=== PATIENT | male | born 1955 | race Caucasian/White ===

== ENCOUNTER → 2019-11-30 06:52 | Outpatient (CLI) | payer OTHER, MEDICARE, SELFPAY ==
[2019-11-30 08:12] LABS: Alanine Aminotransferase 29 IU/L (<50); Albumin 4.1 g/dL (3.5-5.0); Albumin Globulin Ratio 1.4 (1.0-2.8); Alkaline Phosphatase 40 U/L (38-126); Aspartate Aminotransferase 30 IU/L (17-59); BUN Creatinine Ratio 22.2 (6-22); Bilirubin Total 0.8 mg/dL (0.2-1.3); Blood Urea Nitrogen 20 mg/dL (9-20); Calcium 9.2 mg/dL (8.4-10.2); Carbon Dioxide 31 mmol/L (22-32); Chloride 104 mmol/L (98-107); Cholesterol 150 mg/dL (140-199); Estimated Glomerular Filt Rate > 60.0 mL/min (>60); Glucose 87 mg/dL (80-110); HDL Cholesterol 46 mg/dL (40-60); HEMOLYSIS < 15 (0-50); LDL Cholesterol Calculated 93 mg/dL (<100); Sodium 142 mmol/L (137-145); Total Protein 7.1 g/dL (6.3-8.2); Triglycerides 55 mg/dL (35-150)
[2019-11-30 08:18] LABS: Hemoglobin A1C% w Est Avg Glu 5.1 % (4.0-6.0)
[2019-11-30 08:40] LABS: Prostate Specific Antigen Scrn 0.763 ng/mL (0.1-4.0)
[2019-11-30 09:00] LABS: Hep C Virus Ab w/Reflex Quant NEGATIVE s/c (NEGATIVE)
== END ==
PROVIDERS: PCP Physician Assistant; Visit Provider Physician Assistant
DX: Z12.5 Encounter for screening for malignant neoplasm of prostate (principal); Z00.00 Encounter for general adult medical examination without abnormal findings; Z13.1 Encounter for screening for diabetes mellitus; Z13.6 Encounter for screening for cardiovascular disorders; Z82.49 Family history of ischemic heart disease and other diseases of the circulatory system; Z11.59 Encounter for screening for other viral diseases; Z13.220 Encounter for screening for lipoid disorders
CPT/HCPCS: 36415; 80053; 80061; 83036; 86803; G0103

== ENCOUNTER → 2020-06-06 08:44 | Outpatient (CLI) | payer MEDICARE, OTHER, SELFPAY ==
[2020-06-07 14:39] LABS: Fecal Immunochemical Test Negative (Negative)
== END ==
PROVIDERS: PCP Nurse Practitioner; Referring Provider Nurse Practitioner; Visit Provider Nurse Practitioner
DX: Z12.11 Encounter for screening for malignant neoplasm of colon (principal)
CPT/HCPCS: 82274

== ENCOUNTER → 2020-12-05 07:11 | Outpatient (CLI) | payer MEDICARE, OTHER, SELFPAY ==
[2020-12-05 09:20] LABS: Free T3, Triiodothyronine Free 4.42 pg/mL (2.77-5.27); Free T4, Direct Thyroxine 1.02 ng/dL (0.78-2.19)
[2020-12-05 09:26] LABS: Prostate Specific Antigen 0.925 ng/mL (0.10-4.00)
[2020-12-05 09:34] LABS: Thyroid Stimulating Hormone 2.61 uIU/mL (0.47-4.68)
== END ==
PROVIDERS: PCP Nurse Practitioner; Referring Provider Nurse Practitioner; Visit Provider Nurse Practitioner
DX: Z12.5 Encounter for screening for malignant neoplasm of prostate (principal); R63.4 Abnormal weight loss
CPT/HCPCS: 36415; 84153; 84439; 84443; 84481; G0103

== ENCOUNTER → 2021-02-12 09:29 | Outpatient (CLI) | payer MEDICARE, OTHER, SELFPAY ==
[2021-02-12 11:13] LABS: COVID19 -Nasal RAPID Negative (Negative)
== END ==
PROVIDERS: PCP Nurse Practitioner; Visit Provider Specialist
DX: Z20.822 Contact with and (suspected) exposure to COVID-19 (principal)
CPT/HCPCS: 87635; C9803

== ENCOUNTER 2021-02-13 11:55 | Day surgery (SDC) | payer MEDICARE, OTHER, SELFPAY ==
--- NOTE | 2021-02-13 | PATH_ITS ---
[facility] Accession Number: [id number] . 01 Material submitted: . cecum - CECUM POLYP . 02 Diagnosis: Cecum, Polyp, Biopsy: Benign lymphoid aggregate. MRV 02/17/2021 1442 Local . 02 Electronically signed: . Alaina Quick MD, Pathologist NPI- [id number] . 01 Gross description: . CECUM POLYP: Received in formalin is 1 fragment(s) of vicente, soft tissue measuring 0.3 x 0.3 x 0.2 cm submitted entirely in 1 cassette(s) /QBJ 02/14/2021 0649 Local . 02 Pathologist provided ICD-10: K63.5 . 02 CPT . 254691 Performed at: 01 [facility] [address] [id number] MD Miguel Khan MD Phone: [phone] Performed at: 02 [facility] [place] [address] [place], [place] [id number] MD Alaina Quick MD Phone: [phone]
[2021-02-13 12:09] VITALS: BP 133/78; PULSE 73; RESP 16; TEMP 36.4; O2SAT 99; BMI 18.2
[2021-02-13] MEDS: LACTATED RINGERS 1,000 ML 200 ML IV (12:35)
--- NOTE | 2021-02-13 13:18 | PM.HP.1 ---
History of Present Illness History of Present Illness Date Patient Seen: 02/13/21 Time Patient Seen: 13:18 Chief complaint: SDC Narrative: The patient is a gentleman who last had a colonoscopy over 10 years ago. He is here for screening exam. No family history of colon cancer. Patient History Medical History Colon cancer screening Counseling on health care directive Encounter for routine adult health examination without abnormal findings Family history of cardiac disorder (10/06/17) Family history of rheumatoid arthritis (10/06/17) No pertinent past medical history POLST (Physician Orders for Life-Sustaining Treatment) Prostate cancer screening Weight loss Surgical History History of tonsillectomy Family & Social History Family History Father History of rheumatoid arthritis History of obesity History of heart disease Sister Age: 75 History of malignant spinal cord neoplasm History of non-Hodgkin's lymphoma Social History: household members spouse Tobacco & Substance use: Tobacco type cigarettes Smoking Status Former smoker alcohol intake current alcohol intake frequency a few times a week Substance Use Type does not use Meds Home Medications and Allergies Home Medications Medication Instructions Recorded Confirmed Type [VITAMIN D3] 1000IU 1,000 el unit PO QDAY #0 04/30/20 02/13/21 History ovd-tnp-todv 1 tab PO .QD 12/10/20 02/13/21 History xabycbtarors-craywyiu-rhuuns tablet 1 tab PO DAILY 12/10/20 02/13/21 History Allergies Allergy/AdvReac Type Severity Reaction Status Date / Time No Known Drug Allergies Allergy Verified 02/13/21 12:41 Review of Systems Review of Systems ROS: Yes All systems reviewed with the patient and are negative except as otherwise documented Exam Vital Signs (past 8 hours): - 02/13/21 12:09 Temperature 97.6 F Pulse Rate 73 Respiratory Rate 16 Blood Pressure 133/78 Pulse Oximetry 99 Oxygen Delivery Method Room Air Narrative Exam Narrative: Pleasant cooperative patient no apparent distress. Lungs are clear to auscultation. No rales or rhonchi. Heart regular rate and rhythm no murmur gallop. Abdomen is soft nontender without mass. No obvious hernias. Patient is alert and oriented x3. Assessment & Plan Assessment & Plan narrative: The patient for a screening colonoscopy. I have discussed the procedure with them. Risks of bleeding, perforation which would necessitate major operation, failure to find remove all lesions, the potential tattoo were all discussed. All questions were answered. They wished to proceed.
--- NOTE | 2021-02-13 13:19 | PM.PREOP ---
Pre-operative Note COVID-19 COVID-19 status: Negative Interval Note History & Physical reviewed/Exam performed by Physician: Yes Changes to H&P: No ASA Class (for procedural sedation): I
[2021-02-13] MEDS: fentaNYL 250 MCG/5 ML INJ IV (13:43)
[2021-02-13] MEDS: MIDAZOLAM 5 MG/5 ML VIAL IV (13:43)
[2021-02-13 14:03] VITALS: BP 114/74; PULSE 58; RESP 14; TEMP 37.4; O2SAT 99
--- NOTE | 2021-02-13 14:05 | PM.OP.ENDO ---
Operative Date/Time/Diagnoses Date of procedure: 02/13/21 Time of procedure: 14:05 Pre-op diagnosis: Screening exam for colon cancer. Last exam about 10 years ago. Post-op diagnosis: same (Pancolonic diverticulosis. Possible tiny lesion in the cecum..) Procedure & Clinicians Study performed: Colonoscopy with cold biopsy Same procedure as scheduled: Yes Indications: Screening Surgeon: Frank Calderon Procedure Notes SCOAP/Timeout: Performed Procedure in detail: The patient was placed in the left lateral decubitus position and underwent IV sedation directed by the surgeon consisting of fentanyl and Versed. Digital exam was unremarkable.. The scope was inserted and advanced through the rectum into the sigmoid, descending, transverse, and ascending colon. Patient was noted to have extensive diverticulosis of the colon. Stiffener was applied and pressure applied in order to reach the cecum.. The cecum was reached identified by the ileocecal valve and the appendiceal opening. There was a tiny possible polyp near the cecum which I biopsied. The scope was gradually brought out. No other Polyps were found. The scope ultimately was retroflexed in the rectum. The appearance was was remarkable for internal hemorrhoids without ulceration.. The scope was removed and the patient tolerated the procedure well. The prep was very good. Scope withdrawal time: 11 minutes Sedation minutes: 27 Findings: diverticulosis (Pancolonic) and polyp (Possible cecal polyp) Specimen(s): other (Possible polyp) Complications: none Post-procedure Recommendations: Start medication(s) (Consider taking Metamucil) and Other recommendation (If the lesion biopsied is adenomatous he should have a repeat colonoscopy in 5 years. If not a to be 10 years.) Follow up: as needed Disposition: PACU
[2021-02-13 14:06] VITALS: BP 107/65; PULSE 61; RESP 14; O2SAT 99
[2021-02-13 14:11] VITALS: BP 104/67; PULSE 70; RESP 16; O2SAT 100
[2021-02-13 14:16] VITALS: BP 110/71; PULSE 70; RESP 14; TEMP 37.1; O2SAT 100
[2021-02-13 14:20] VITALS: BP 112/68; PULSE 57; RESP 14; TEMP 36.8; O2SAT 100
== END 2021-02-13 14:39 | disposition home or self-care (01) ==
PROVIDERS: PCP Nurse Practitioner; Referring Provider Specialist; Visit Provider Specialist
PROC: 0DJD8ZZ Inspection of Lower Intestinal Tract, Via Natural or Artificial Opening Endoscopic (ICD-10-PCS; CPT 45378; principal; 2021-02-13 13:00)
DX: Z12.11 Encounter for screening for malignant neoplasm of colon (principal); K57.30 Diverticulosis of large intestine without perforation or abscess without bleeding
CPT/HCPCS: 45380; 99152; J2250; J3010

== ENCOUNTER → 2021-03-24 15:52 | Outpatient (CLI) | payer MEDICARE, OTHER, SELFPAY | PROVIDERS: PCP Nurse Practitioner; Visit Provider Student in an Organized Health Care Education/Training Program | DX: L03.032 Cellulitis of left toe (principal) | CPT/HCPCS: 87070; 87075; 87077; 87147; 87186; 87205 ==

== ENCOUNTER → 2022-04-30 06:52 | Outpatient (CLI) | payer MEDICARE, OTHER, SELFPAY ==
[2022-05-01 05:14] LABS: Prostate Specific Antigen Scrn 0.852 ng/mL (0.1-4.0)
[2022-05-01 13:39] LABS: Fecal Immunochemical Test Negative (Negative)
== END ==
PROVIDERS: PCP Nurse Practitioner; Referring Provider Nurse Practitioner; Visit Provider Nurse Practitioner
DX: Z12.5 Encounter for screening for malignant neoplasm of prostate (principal); Z12.11 Encounter for screening for malignant neoplasm of colon
CPT/HCPCS: 36415; 82274; G0103

== ENCOUNTER → 2024-11-17 07:02 | Outpatient (CLI) | payer MEDICARE, OTHER, SELFPAY ==
[2024-11-17 08:57] LABS: Alanine Aminotransferase 30 IU/L (<50); Albumin 4.4 g/dL (3.5-5.0); Albumin Globulin Ratio 1.6 (1.0-2.8); Alkaline Phosphatase 52 U/L (38-126); Aspartate Aminotransferase 34 IU/L (17-59); BUN Creatinine Ratio 23.7 (6-22); Bilirubin Total 0.8 mg/dL (0.2-1.3); Blood Urea Nitrogen 22 mg/dL (9-20); Calcium 9.6 mg/dL (8.4-10.2); Carbon Dioxide 31 mmol/L (22-32); Chloride 103 mmol/L (98-107); Cholesterol 167 mg/dL (140-199); Estimated Glomerular Filt Rate > 60 mL/min (>60); Globulin 2.7 g/dL (1.7-4.1); Glucose 97 mg/dL (80-110); HDL Cholesterol 59 mg/dL (40-60); HEMOLYSIS < 15 (0-50); LDL Cholesterol Calculated 94 mg/dL (<100); Potassium 4.6 mmol/L (3.4-5.1); Sodium 140 mmol/L (137-145); Total Protein 7.1 g/dL (6.3-8.2); Triglycerides 68 mg/dL (35-150)
[2024-11-17 09:20] LABS: Prostate Specific Antigen Scrn 1.23 ng/mL (0.1-4.0)
== END ==
LOC: LAB 07:05
PROVIDERS: Family Provider Nurse Practitioner; PCP Registered Nurse Diabetes Educator; Referring Provider Nurse Practitioner; Visit Provider Nurse Practitioner
DX: Z13.6 Encounter for screening for cardiovascular disorders (principal); Z12.5 Encounter for screening for malignant neoplasm of prostate; Z13.1 Encounter for screening for diabetes mellitus
CPT/HCPCS: 36415; 80053; 80061; G0103

== ENCOUNTER → 2024-12-27 11:00 | Outpatient (RCR) | payer MEDICARE, OTHER, SELFPAY ==
--- NOTE | 2023-08-30 10:53 | PT.OIE ---
Current Diagnoses Low back pain, unspecified (08/30/23) Abnormal posture (08/30/23) Past Medical History (Last Reviewed 06/14/23 @ 15:37 by JOON Jerez) Colon cancer screening Counseling on health care directive Encounter for routine adult health examination without abnormal findings Family history of cardiac disorder (10/06/17) Family history of rheumatoid arthritis (10/06/17) No pertinent past medical history POLST (Physician Orders for Life-Sustaining Treatment) Prostate cancer screening Weight loss Past Surgical History (Last Reviewed 06/14/23 @ 15:37 by JOON Jerez) History of tonsillectomy Visit Care Team Role Provider Type JOON Jerez Attending Provider Advanced Project Associate Family Provider Primary Care Provider Referring Provider Specialty: Family Practice Address: [address] [place] [address], [facility] Email: [email or web address] Physical Therapy Initial Evaluation PT-OP-A Visit Information Start: 08/30/23 10:33 Freq: Status: Active Protocol: Document 08/30/23 09:30 DCW (Rec: 08/30/23 10:42 [facility] [id number]) Out-Patient Physical Therapy Visit Information Visit Information Visit Type Initial Evaluation Visit Start Time 09:30 Visit Stop Time 10:15 Total Visit Minutes 45 Visit Number 1 Number of FIBREGLASS LAMINATOR Visits 0 Evaluation Information Evaluation Date 08/30/23 PT-OP-B Current Condition Start: 08/30/23 10:33 Freq: Status: Active Protocol: Document 08/30/23 09:30 DCW (Rec: 08/30/23 10:42 [facility] [id number]) Current Condition History of Current Condition Onset Date Multi-year history Current Complaints Occasional low back pain, worsening posture History of Current Condition Pt is a 68 year old male presenting to skilled therapy with complaints of a long- standing history of occasional low back pain. Pt notes it typically occurs 2-3x/year, lasts ~4 days, and usual resolves with rest. No specific cause, typically can occur with rotation or lifting , but can also happen when just standing around. Additionally, pt notes his has been pointing out worsening posture. Right now, no specific pain, not at all limited in activity, typically goes for a walk and/or bike ride daily. PT-OP-C Subjective Start: 08/30/23 10:33 Freq: Status: Active Protocol: Document 08/30/23 09:30 DCW (Rec: 08/30/23 10:42 DCW [id number]) OP-PT Subjective Patient Comments Patient Comments I'm sorry I don't have some big chronic thing to work on, it's just kind of occasionally annoying. Patient Questionnaires Oswestry Low Back Index Oswestry Score 0% Oswestry Impairment 0% Impaired (Score 0) PT-OP-F Manual Assessment Start: 08/30/23 10:33 Freq: Status: Active Protocol: Document 08/30/23 09:30 DCW (Rec: 08/30/23 10:42 DCW [id number]) Manual Assessments Soft Tissue Assessment Soft Tissue Mobility Assessment Mild increased tone in bilateral piriformis and hamstrings, no tenderness. PT-OP-J Posture/Palpation/Skin Start: 08/30/23 10:33 Freq: Status: Active Protocol: Document 08/30/23 09:30 DCW (Rec: 08/30/23 10:42 DCW [id number]) Posture Evaluation Position Standing Evaluation View Lateral Head/C-Spine Posture Forward Head T-Spine Posture Increased Kyphosis Shoulder Posture (L) Rounded,(R) Rounded,(L) Forward,(R) Forward PT-OP-K Range of Motion Start: 08/30/23 10:33 Freq: Status: Active Protocol: Document 08/30/23 09:30 DCW (Rec: 08/30/23 10:42 DCW [id number]) Lumbar Spine Range of Motion Lumbar Spine Active Degrees Testing Position Standing Flexion 55 Extension 15 Lateral Flexion Left 59 Lateral Flexion Right 57 Comments Lateral flexion measured in cm from fingertips to floor PT-OP-L Special Tests Start: 08/30/23 10:33 Freq: Status: Active Protocol: Document 08/30/23 09:30 DCW (Rec: 08/30/23 10:42 DCW [id number]) Special Tests Lumbar Spine Special Tests Vertical Spine Loading Test Results Negative Straight Leg Raise Test Results Bilateral hamstring tightness Standing Flexion Test Results Negative Slump Test Results Negative Compression Test Results Negative PT-OP-Q Treatments Start: 08/30/23 10:33 Freq: Status: Active Protocol: Document 08/30/23 09:30 DCW (Rec: 08/30/23 10:53 [facility] [id number]) Therapeutic Exercises Supine Exercises Chin tuck Supine Exercise Name Chin tuck/Head lift Sitting Exercises Piriformis Sitting Exercise Name Seated figure-4 piriformis stretch Side bilateral Standing Exercises Pallof Press Standing Exercise Name Pallof Press Rows Standing Exercise Name Rows Side bilateral Resistance Lv 3 Pec stretch Standing Exercise Name Corner stretch Side bilateral PT-OP-T Assessment and Plan Start: 08/30/23 10:33 Freq: Status: Active Protocol: Document 08/30/23 09:30 DCW (Rec: 08/30/23 10:53 [facility] [id number]) Physical Therapy Assessment Rehab Potential Rehabilitation Potential Excellent Evaluation Complexity Number of Personal Factors/Comorbidities 0 Number of Body Systems Impaired 1-2 Clinical Presentation at Evaluation Stable Impairments Impairments Functional Activities, Functional Mobility,Posture, ROM Goals Two Impairment Pt presents with poor posture 80% of the time Cloth Baler Goal (LTG) Pt to present with WNL standing posture without verbal cueing 50% of the time LTG Duration 09/30/23 One Impairment Pt does not have an appropriate home exercise program Short Term Goal (STG) Pt to be independent and compliant with an appropriate HEP STG Duration 09/13/23 Assessment Summary Assessment 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 Pt should benefit from skilled therapy focusing on an appropriate HEP to improve cervical strengthening and stretching to improve rounded shoulders, as well as core strengthening to help prevent further low back flare-ups. Pt currently doing fairly well, difficult to determine what exact low back issue he is having, completely asymptomatic at this time. Will likely do well with implementation of comprehensive HEP and focus on improved posture. Physical Therapy Plan Frequency and Duration Frequency of Treatment 2x/Week Plan of Care Start Date 08/30/23 Plan of Care End Date 09/30/23 Therapeutic Interventions Therapeutic Interventions Home Exercise Program,Joint Mobilizations,Manual Therapy, Neuromuscular Re-education, Patient/Caregiver Education, Self-Care/Home Management,Soft Tissue Mobilization, Therapeutic Activities, Therapeutic Exercises Next Visit Focus/Plan Next Note Type Treatment Note Next Visit Plan Posture training, core strengthening, stretching
--- NOTE | 2023-08-30 10:54 | PT.OPPOC ---
Physical, Occupational & Speech Therapy At [facility] Current Diagnoses Low back pain, unspecified (08/30/23) Abnormal posture (08/30/23) Visit Care Team Role Provider Type JOON Jerez Attending Provider Advanced Beam Department Supervisor Family Provider Primary Care Provider Referring Provider Specialty: Family Practice Address: [address] [place] [address], [facility] Email: [email or web address] Plan Of Care PT-OP-T Assessment and Plan Start: 08/30/23 10:33 Freq: Status: Active Protocol: Document 08/30/23 09:30 DCW (Rec: 08/30/23 10:53 DCW [id number]) Physical Therapy Assessment Rehab Potential Rehabilitation Potential Excellent Evaluation Complexity Number of Personal Factors/Comorbidities 0 Number of Body Systems Impaired 1-2 Clinical Presentation at Evaluation Stable Impairments Impairments Functional Activities, Functional Mobility,Posture, ROM Goals Two Impairment Pt presents with poor posture 80% of the time Utilization Reviewer Goal (LTG) Pt to present with WNL standing posture without verbal cueing 50% of the time LTG Duration 09/30/23 One Impairment Pt does not have an appropriate home exercise program Short Term Goal (STG) Pt to be independent and compliant with an appropriate HEP STG Duration 09/13/23 Assessment Summary Assessment 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 Pt should benefit from skilled therapy focusing on an appropriate HEP to improve cervical strengthening and stretching to improve rounded shoulders, as well as core strengthening to help prevent further low back flare-ups. Pt currently doing fairly well, difficult to determine what exact low back issue he is having, completely asymptomatic at this time. Will likely do well with implementation of comprehensive HEP and focus on improved posture. Physical Therapy Plan Frequency and Duration Frequency of Treatment 2x/Week Plan of Care Start Date 08/30/23 Plan of Care End Date 09/30/23 Therapeutic Interventions Therapeutic Interventions Home Exercise Program,Joint Mobilizations,Manual Therapy, Neuromuscular Re-education, Patient/Caregiver Education, Self-Care/Home Management,Soft Tissue Mobilization, Therapeutic Activities, Therapeutic Exercises Next Visit Focus/Plan Next Note Type Treatment Note Next Visit Plan Posture training, core strengthening, stretching Plan of Care Dates Plan of Care Start Date 08/30/23 Plan of Care End Date 09/30/23 Electronically Signed by: Kemal Hyde, PT 08/30/23 8828 If you are in agreement with this Plan of Care, please return a signed and dated copy. I have reviewed this Plan of Care and certify that the skilled therapy services above are required to meet the patient?s needs. Physician Signature Date Printed Name and Credentials Clinical Instructor Signature Printed Name and Credentials
--- NOTE | 2023-09-01 10:14 | PT.OTN ---
Current Diagnoses Low back pain, unspecified (09/01/23) Abnormal posture (09/01/23) Physical Therapy Treatment Note PT-OP-A Visit Information Start: 08/30/23 10:33 Freq: Status: Active Protocol: Document 09/01/23 09:30 DCW (Rec: 09/01/23 10:14 DCW [id number]) Out-Patient Physical Therapy Visit Information Visit Information Visit Type Treatment Note Visit Start Time 09:30 Visit Stop Time 10:15 Total Visit Minutes 45 Visit Number 2 Number of MANAGER STRATEGIC PARTNERSHIPS Visits 0 Evaluation Information Evaluation Date 08/30/23 PT-OP-B Current Condition Start: 08/30/23 10:33 Freq: Status: Active Protocol: Document 08/30/23 09:30 DCW (Rec: 08/30/23 10:42 DCW [id number]) Current Condition History of Current Condition Onset Date Multi-year history Current Complaints Occasional low back pain, worsening posture History of Current Condition Pt is a 68 year old male presenting to skilled therapy with complaints of a long- standing history of occasional low back pain. Pt notes it typically occurs 2-3x/year, lasts ~4 days, and usual resolves with rest. No specific cause, typically can occur with rotation or lifting , but can also happen when just standing around. Additionally, pt notes his has been pointing out worsening posture. Right now, no specific pain, not at all limited in activity, typically goes for a walk and/or bike ride daily. PT-OP-C Subjective Start: 08/30/23 10:33 Freq: Status: Active Protocol: Document 09/01/23 09:30 DCW (Rec: 09/01/23 10:14 DCW [id number]) OP-PT Subjective Patient Comments Patient Comments Pt notes some very mild right- sided neck pain, thinks it may have even been present prior to his evwednesday, but that's his only complaint. PT-OP-F Manual Assessment Start: 08/30/23 10:33 Freq: Status: Active Protocol: Document 08/30/23 09:30 DCW (Rec: 08/30/23 10:42 DCW [id number]) Manual Assessments Soft Tissue Assessment Soft Tissue Mobility Assessment Mild increased tone in bilateral piriformis and hamstrings, no tenderness. PT-OP-J Posture/Palpation/Skin Start: 08/30/23 10:33 Freq: Status: Active Protocol: Document 08/30/23 09:30 DCW (Rec: 08/30/23 10:42 DCW [id number]) Posture Evaluation Position Standing Evaluation View Lateral Head/C-Spine Posture Forward Head T-Spine Posture Increased Kyphosis Shoulder Posture (L) Rounded,(R) Rounded,(L) Forward,(R) Forward PT-OP-K Range of Motion Start: 08/30/23 10:33 Freq: Status: Active Protocol: Document 08/30/23 09:30 DCW (Rec: 08/30/23 10:42 DCW [id number]) Lumbar Spine Range of Motion Lumbar Spine Active Degrees Testing Position Standing Flexion 55 Extension 15 Lateral Flexion Left 59 Lateral Flexion Right 57 Comments Lateral flexion measured in cm from fingertips to floor PT-OP-L Special Tests Start: 08/30/23 10:33 Freq: Status: Active Protocol: Document 08/30/23 09:30 DCW (Rec: 08/30/23 10:42 DCW [id number]) Special Tests Lumbar Spine Special Tests Vertical Spine Loading Test Results Negative Straight Leg Raise Test Results Bilateral hamstring tightness Standing Flexion Test Results Negative Slump Test Results Negative Compression Test Results Negative PT-OP-Q Treatments Start: 08/30/23 10:33 Freq: Status: Active Protocol: Document 09/01/23 09:30 DCW (Rec: 09/01/23 10:14 DCW [id number]) Therapeutic Exercises Supine Exercises Air Bicycle Supine Exercise Name PPT /c Air bicycle SLR Supine Exercise Name PPT /c SLR Side bilateral Reps/Minutes 5 hold, 10x each Marching Supine Exercise Name PPT /c Marching Reps/Minutes 10 PPT Supine Exercise Name PPT /c TrA Reps/Minutes 5 hold Sitting Exercises Upper Trap Sitting Exercise Name Upper Trap stretch Standing Exercises Pallof Press Standing Exercise Name Pallof Press Resistance Lv 3 Rows Standing Exercise Name Rows Side bilateral Resistance Lv 3 PT-OP-T Assessment and Plan Start: 08/30/23 10:33 Freq: Status: Active Protocol: Document 09/01/23 09:30 DCW (Rec: 09/01/23 10:14 DCW [id number]) Physical Therapy Assessment Impairments Impairments Functional Activities, Functional Mobility,Posture, ROM Goals Two Impairment Pt presents with poor posture 80% of the time Skilled Nursing Goal (LTG) Pt to present with WNL standing posture without verbal cueing 50% of the time LTG Duration 09/30/23 One Impairment Pt does not have an appropriate home exercise program Short Term Goal (STG) Pt to be independent and compliant with an appropriate HEP STG Duration 09/13/23 Assessment Summary Assessment Pt provided with a new HEP hand-out, happy with current exercises, feels education has been beneficial so far. Continue to work on posture and core strengthening. Physical Therapy Plan Frequency and Duration Frequency of Treatment 2x/Week Plan of Care Start Date 08/30/23 Plan of Care End Date 09/30/23 Therapeutic Interventions Therapeutic Interventions Home Exercise Program,Joint Mobilizations,Manual Therapy, Neuromuscular Re-education, Patient/Caregiver Education, Self-Care/Home Management,Soft Tissue Mobilization, Therapeutic Activities, Therapeutic Exercises Next Visit Focus/Plan Next Note Type Treatment Note Next Visit Plan Posture training, core strengthening, stretching
--- NOTE | 2023-09-06 12:48 | PT.OTN ---
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 Pt notes it typically occurs 2-3x/year, lasts ~4 days, and usual resolves with rest. No specific cause, typically can occur with rotation or lifting , but can also happen when just standing around. Additionally, pt notes his has been pointing out worsening posture. Right now, no specific pain, not at all limited in activity, typically goes for a walk and/or bike ride daily. PT-OP-C Subjective Start: 08/30/23 10:33 Freq: Status: Active Protocol: Document 09/06/23 12:00 DCW (Rec: 09/06/23 12:48 DCW [id number]) OP-PT Subjective Patient Comments Patient Comments Pt comes in today reporting a flare-up in low back pain, started yesterday morning, unsure what the cause was. PT-OP-F Manual Assessment Start: 08/30/23 10:33 Freq: Status: Active Protocol: Document 08/30/23 09:30 DCW (Rec: 08/30/23 10:42 DCW [id number]) Manual Assessments Soft Tissue Assessment Soft Tissue Mobility Assessment Mild increased tone in bilateral piriformis and hamstrings, no tenderness. PT-OP-J Posture/Palpation/Skin Start: 08/30/23 10:33 Freq: Status: Active Protocol: Document 08/30/23 09:30 DCW (Rec: 08/30/23 10:42 DCW [id number]) Posture Evaluation Position Standing Evaluation View Lateral Head/C-Spine Posture Forward Head T-Spine Posture Increased Kyphosis Shoulder Posture (L) Rounded,(R) Rounded,(L) Forward,(R) Forward PT-OP-K Range of Motion Start: 08/30/23 10:33 Freq: Status: Active Protocol: Document 08/30/23 09:30 DCW (Rec: 08/30/23 10:42 DCW [id number]) Lumbar Spine Range of Motion Lumbar Spine Active Degrees Testing Position Standing Flexion 55 Extension 15 Lateral Flexion Left 59 Lateral Flexion Right 57 Comments Lateral flexion measured in cm from fingertips to floor PT-OP-L Special Tests Start: 08/30/23 10:33 Freq: Status: Active Protocol: Document 08/30/23 09:30 DCW (Rec: 08/30/23 10:42 DCW [id number]) Special Tests Lumbar Spine Special Tests Vertical Spine Loading Test Results Negative Straight Leg Raise Test Results Bilateral hamstring tightness Standing Flexion Test Results Negative Slump Test Results Negative Compression Test Results Negative PT-OP-Q Treatments Start: 08/30/23 10:33 Freq: Status: Active Protocol: Document 09/06/23 12:00 DCW (Rec: 09/06/23 12:48 DCW [id number]) Gym Equipment Therapeutic Ball Pelvic tilts/circles Exercise Details Pelvic tilts/circles Ball Size/Color Red - 75 cm Body Position Sitting Therapeutic Exercises Supine Exercises Self STM Supine Exercise Name Lumbar paraspinals Side left Comments /c Tennis ball Sidelying Exercises Open Book Sidelying Exercise Name Open Book Standing Exercises Hip Hiking Standing Exercise Name Hip Hiking Side bilateral Equipment Used 4 step PT-OP-T Assessment and Plan Start: 08/30/23 10:33 Freq: Status: Active Protocol: Document 09/06/23 12:00 DCW (Rec: 09/06/23 12:48 DCW [id number]) Physical Therapy Assessment Impairments Impairments Functional Activities, Functional Mobility,Posture, ROM Goals Two Impairment Pt presents with poor posture 80% of the time Mcfp Goal (LTG) Pt to present with WNL standing posture without verbal cueing 50% of the time LTG Duration 09/30/23 One Impairment Pt does not have an appropriate home exercise program Short Term Goal (STG) Pt to be independent and compliant with an appropriate HEP STG Duration 09/13/23 Assessment Summary Assessment Increased tone and tenderness today along left QL and paraspinals, focused on self- STM and stretching/ strengthening. Good overall response. Was planning to discharge following today's appointment, as pt felt good with independent HEP, however since pt currently has slight flare-up, decided to keep pt's chart open for ~1 month just in case he has any set-backs. Will plan to discharge in one month if pt has not scheduled any follow-ups by that time. Physical Therapy Plan Frequency and Duration Frequency of Treatment 2x/Week Plan of Care Start Date 08/30/23 Plan of Care End Date 09/30/23 Therapeutic Interventions Therapeutic Interventions Home Exercise Program,Joint Mobilizations,Manual Therapy, Neuromuscular Re-education, Patient/Caregiver Education, Self-Care/Home Management,Soft Tissue Mobilization, Therapeutic Activities, Therapeutic Exercises Next Visit Focus/Plan Next Note Type Treatment Note Next Visit Plan Posture training, core strengthening, stretching
--- NOTE | 2024-12-26 16:31 | PT.OPDS ---
Current Diagnoses Low back pain, unspecified (09/06/23) Abnormal posture (09/06/23) Visit Care Team Role Provider Type JOON Jerez Attending Provider [employer] Speech Language Pathologist Family Provider Primary Care Provider Referring Provider Specialty: Family Practice Address: Email: [email or web address] Visit Number Visit Number 3 Discharge Summary PT-OP-B Current Condition Start: 08/30/23 10:33 Freq: Status: Active Protocol: Document 08/30/23 09:30 DCW (Rec: 08/30/23 10:42 DCW [id number]) Current Condition History of Current Condition Onset Date Multi-year history Current Complaints Occasional low back pain, worsening posture History of Current Condition Pt is a 68 year old male presenting to skilled therapy with complaints of a long- standing history of occasional low back pain. Pt notes it typically occurs 2-3x/year, lasts ~4 days, and usual resolves with rest. No specific cause, typically can occur with rotation or lifting , but can also happen when just standing around. Additionally, pt notes his has been pointing out worsening posture. Right now, no specific pain, not at all limited in activity, typically goes for a walk and/or bike ride daily. PT-OP-C Subjective Start: 08/30/23 10:33 Freq: Status: Active Protocol: Document 09/06/23 12:00 DCW (Rec: 09/06/23 12:48 DCW [id number]) OP-PT Subjective Patient Comments Patient Comments Pt comes in today reporting a flare-up in low back pain, started yesterday morning, unsure what the cause was. PT-OP-F Manual Assessment Start: 08/30/23 10:33 Freq: Status: Active Protocol: Document 08/30/23 09:30 DCW (Rec: 08/30/23 10:42 DCW [id number]) Manual Assessments Soft Tissue Assessment Soft Tissue Mobility Assessment Mild increased tone in bilateral piriformis and hamstrings, no tenderness. PT-OP-J Posture/Palpation/Skin Start: 08/30/23 10:33 Freq: Status: Active Protocol: Document 08/30/23 09:30 DCW (Rec: 08/30/23 10:42 DCW [id number]) Posture Evaluation Position Standing Evaluation View Lateral Head/C-Spine Posture Forward Head T-Spine Posture Increased Kyphosis Shoulder Posture (L) Rounded,(R) Rounded,(L) Forward,(R) Forward PT-OP-K Range of Motion Start: 08/30/23 10:33 Freq: Status: Active Protocol: Document 08/30/23 09:30 DCW (Rec: 08/30/23 10:42 DCW [id number]) Lumbar Spine Range of Motion Lumbar Spine Active Degrees Testing Position Standing Flexion 55 Extension 15 Lateral Flexion Left 59 Lateral Flexion Right 57 Comments Lateral flexion measured in cm from fingertips to floor PT-OP-L Special Tests Start: 08/30/23 10:33 Freq: Status: Active Protocol: Document 08/30/23 09:30 DCW (Rec: 08/30/23 10:42 DCW [id number]) Special Tests Lumbar Spine Special Tests Vertical Spine Loading Test Results Negative Straight Leg Raise Test Results Bilateral hamstring tightness Standing Flexion Test Results Negative Slump Test Results Negative Compression Test Results Negative PT-OP-T Assessment and Plan Start: 08/30/23 10:33 Freq: Status: Active Protocol: Document 12/26/24 16:30 DCW (Rec: 12/26/24 16:31 DCW [id number]) Physical Therapy Assessment Assessment Summary Assessment Pt has not been seen for more than 15 months. POC has since . Pt will be discharged from skilled therapy at this time, and will require a new referral in order to return. Physical Therapy Plan Discharge Physical Therapy Discharge Reasons No Longer Attending PT
== END | disposition home or self-care (01) ==
LOC: PHYS 08-30 09:14
PROVIDERS: Family Provider Nurse Practitioner; PCP Nurse Practitioner; Referring Provider Nurse Practitioner; Visit Provider Nurse Practitioner
DX: R29.3 Abnormal posture (principal); M54.50 Low back pain, unspecified
CPT/HCPCS: 97110; 97161